=== PATIENT | female | born 1985 ===

== ENCOUNTER 2021-03-16 13:50 | Outpatient (CLI) | payer OTHER | END 2021-03-16 15:34 | disposition home or self-care (01) | LOC: PRENATAL 13:50 | PROVIDERS: ATTEND Obstetrics & Gynecology Maternal & Fetal Medicine | DX: O35.0XX1 Maternal care for (suspected) central nervous system malformation in fetus, fetus 1 (principal); O35.3XX1 Maternal care for (suspected) damage to fetus from viral disease in mother, fetus 1; O98.512 Other viral diseases complicating pregnancy, second trimester; O99.891 Other specified diseases and conditions complicating pregnancy; O09.512 Supervision of elderly primigravida, second trimester; Z36.89 Encounter for other specified antenatal screening; Z3A.24 24 weeks gestation of pregnancy ==

== ENCOUNTER 2021-05-19 12:42 | Outpatient (CLI) | payer OTHER | END 2021-05-19 15:36 | disposition home or self-care (01) | LOC: PRENATAL 12:42 | PROVIDERS: ATTEND Obstetrics & Gynecology Maternal & Fetal Medicine | DX: O26.843 Uterine size-date discrepancy, third trimester (principal); O35.0XX1 Maternal care for (suspected) central nervous system malformation in fetus, fetus 1; O09.513 Supervision of elderly primigravida, third trimester; O99.891 Other specified diseases and conditions complicating pregnancy; Z36.89 Encounter for other specified antenatal screening; Z3A.34 34 weeks gestation of pregnancy ==

== ENCOUNTER 2021-06-23 00:50 | Inpatient (IN) | payer OTHER ==
[~2021-06-23] VITALS: Ht 170.2 cm; Wt 80.3 kg
[2021-06-23] MEDS ORDERED: IRON325 MG PO (02:34)
[2021-06-23] MEDS ORDERED: PRENATAL CAPLE1 EAC1 PO (02:34)
[2021-06-23] MEDS ORDERED: MULTI VITAMIN1 EACH PO (02:35)
[2021-06-25] MEDS ORDERED: NAPR500T14 PO (05:54)
== END 2021-06-25 12:23 | disposition home or self-care (01) | DRG 806 ==
LOC: SURG-SUITE 00:50 → LDR 00:50 → SURG-SUITE 11:36
PROVIDERS: ADMIT Obstetrics & Gynecology; ATTEND Obstetrics & Gynecology
PROC: 10E0XZZ Delivery of Products of Conception, External Approach (ICD-10-PCS; principal; 2021-06-23)
PROC: 0KQM0ZZ Repair Perineum Muscle, Open Approach (ICD-10-PCS; 2021-06-23)
PROC: 4A1HXFZ Monitoring of Products of Conception, Cardiac Rhythm, External Approach (ICD-10-PCS; 2021-06-23)
DX: O70.1 Second degree perineal laceration during delivery (principal); O99.12 Other diseases of the blood and blood-forming organs and certain disorders involving the immune mechanism complicating childbirth; D68.0 Von Willebrand disease; Z37.0 Single live birth; Z3A.39 39 weeks gestation of pregnancy